=== PATIENT | female | born 1970 | race Caucasian/White ===

== ENCOUNTER 2021-02-24 17:55 | Emergency (ER) | payer OTHER, SELFPAY ==
--- NOTE | ~2021-02-24 | XR_ITS ---
EXAMINATION:XR cervical spine 4-5V DATE: 02/24/2021 18:52 INDICATION: Posttraumatic posterior neck pain radiating to the left shoulder TECHNIQUE: AP, lateral, lateral swimmers and odontoid views of the cervical spine are provided. COMPARISON: None FINDINGS: Alignment is normal. Odontoid is intact. Normal atlantoaxial interval. Vertebral body heights are no rmal. Disc spaces are normal. Multilevel mild bilateral cervical facet osteoarthritis. Small amount o f heterotopic ossification along the ligamentum nuchae. Prevertebral soft tissues are normal. IMPRESSION: 1. Multilevel mild bilateral cervical facet osteoarthritis. No evident acute osseous abnormality. Reviewed, dictated and finalized at location A. [facility] CHIEF IMPRESSION: 1. Multilevel mild bilateral cervical facet osteoarthritis. No evident acute os seous abnormality.
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
[2021-02-24 18:17] VITALS: BP 152/76; PULSE 91; RESP 16; TEMP 37
== END 2021-02-24 19:10 | disposition home or self-care (01) ==
PROVIDERS: Emergency Provider Nurse Practitioner
DX: M54.2 Cervicalgia (principal); E78.00 Pure hypercholesterolemia, unspecified; I10 Essential (primary) hypertension; E11.9 Type 2 diabetes mellitus without complications; F41.9 Anxiety disorder, unspecified
CPT/HCPCS: 72050; 99213; G0463